=== PATIENT | male | born 1985 | race Caucasian/White ===

== ENCOUNTER → 2019-07-31 | Outpatient (REF) ==
--- NOTE | 2019-07-31 14:00 | Diagnostic Imaging Report ---
INDICATION: Heel pain. Three views were obtained. FINDINGS: The alignment is normal. There is no fracture or dislocation. There appears to be an accessory ossicle along the inferior aspect of the distal anterior calcaneus. IMPRESSION: Mild degenerative changes, otherwise unremarkable. Dictated by: Dictated on workstation # [id number]
== END | disposition home or self-care (01) ==
LOC: OCC 13:41
PROVIDERS: ATTEND Nurse Practitioner Family
CPT/HCPCS: 73630